=== PATIENT | female | born 1980 | race Asian ===

== ENCOUNTER 2017-04-06 16:25 | Outpatient (CLI) | payer BC ==
[~2017-04-06] VITALS: Ht 154.9 cm; Wt 67.1 kg
[2017-04-06 16:50] VITALS: BP 104/56
[2017-04-06] MEDS ORDERED: CALC500T7 PO (17:11)
[2017-04-06] MEDS ORDERED: DOCO100C PO (17:11)
[2017-04-06] MEDS ORDERED: PREN1TAB86 PO (17:11)
--- NOTE | 2017-04-06 17:39 | Diagnostic Imaging Report ---
INDICATION: Left upper extremity pain and swelling. TECHNIQUE: Multiple real-time grayscale images are obtained over the left upper extremity in various projections. Duplex Doppler and color Doppler images were also obtained. FINDINGS: The left jugular, subclavian, axillary, brachiocephalic, and basilic veins demonstrate normal response to compression, augmentation, and Valsalva. There are no abnormal fluid collections or masses. IMPRESSION: No evidence of deep venous thrombosis in the left upper extremity. Dictated by: Dictated on workstation # [id number]
--- NOTE | 2017-04-09 12:07 | Physician Query-Final Dx ---
ADOLFO JAVIER 04/09/17 1207: Clinic Account Progress/Dx Physician Query: Please give diagnosis Date of Service Apr 06, 2017 at 16:25 PRAFUL LEYVA MD 04/10/17 0855: Clinic Account Progress/Dx DIAGNOSIS: Diagnosis arm pain ADOLFO JAVIER Apr 09, 2017 12:07 PRAFUL LEYVA MD Apr 10, 2017 08:55
== END 2017-04-06 19:03 | disposition home or self-care (01) ==
LOC: WSo 16:25 → LDRP 16:25 → WSo 19:03
PROVIDERS: ATTEND Obstetrics & Gynecology
DX: O99.89 Other specified diseases and conditions complicating pregnancy, childbirth and the puerperium (principal); M79.632 Pain in left forearm
CPT/HCPCS: 99213

== ENCOUNTER → 2017-04-13 | Outpatient (CLI) | payer OTHER ==
[~2017-04-13] MED LIST: CALC500T7 PO; DOCO100C PO; PREN1TAB86 PO
== END ==
LOC: CANPRECLI → MERGE 11:51 → LABNPT 11:51
PROVIDERS: ATTEND Obstetrics & Gynecology
DX: Z01.84 Encounter for antibody response examination (principal)

== ENCOUNTER → 2017-04-13 | Outpatient (CLI) | payer BC | LOC: LABNPT 11:00 | PROVIDERS: ATTEND Obstetrics & Gynecology | DX: Z34.83 Encounter for supervision of other normal pregnancy, third trimester (principal); Z3A.00 Weeks of gestation of pregnancy not specified | CPT/HCPCS: 86850 ==

== ENCOUNTER 2017-04-14 13:10 | Outpatient (CLI) | payer BC ==
[2017-04-14 14:49] VITALS: BP 101/62
== END 2017-04-14 14:52 | disposition home or self-care (01) ==
LOC: WSo 13:10
PROVIDERS: ATTEND Obstetrics & Gynecology
DX: Z41.8 Encounter for other procedures for purposes other than remedying health state (principal)
CPT/HCPCS: 96372

== ENCOUNTER 2017-06-15 08:10 | Outpatient (CLI) | payer BC ==
[~2017-06-15] VITALS: Ht 160 cm; Wt 74.4 kg
[2017-06-15 08:15] VITALS: BP 110/71
[2017-06-23] MEDS ORDERED: IBUP-1780 PO (07:06)
[2017-06-23] MEDS ORDERED: OXYC-465 PO (07:06)
[2017-06-23] MEDS ORDERED: DOCU100C37 PO (07:06)
== END 2017-06-15 08:35 | disposition home or self-care (01) ==
LOC: PREOP 08:10
PROVIDERS: ATTEND Obstetrics & Gynecology
DX: Z01.818 Encounter for other preprocedural examination (principal); O34.219 Maternal care for unspecified type scar from previous cesarean delivery; Z3A.00 Weeks of gestation of pregnancy not specified
CPT/HCPCS: 87081

== ENCOUNTER 2017-06-22 06:09 | Inpatient (IN) | payer BC ==
[~2017-06-22] VITALS: Ht 157.5 cm; Wt 73.0 kg
[~2017-06-22 06:09] MED LIST changes: +CITRIC ACID/SOB CIT (BICITRA) 30 ML UDC ONE; +FAMOTIDINE 20MG/2ML IV (PEPCID) ONE; +METOCLOPRAMIDE INJ 10 MG/2 ML (REGLAN) ONE; +ceFAZolin 2 GM/50 ML NS 50 ML ONE; +metroNIDAZOLE 500MG/100ML IVPB 100 ML ONE
[2017-06-22] MEDS ORDERED: CITRIC ACID/SOB CIT (BICITRA) 30 ML UDC PO ONE (06:15)
[2017-06-22] MEDS ORDERED: METOCLOPRAMIDE INJ 10 MG/2 ML (REGLAN) IV ONE (06:15)
[2017-06-22] MEDS ORDERED: ceFAZolin 2 GM/50 ML NS 50 ML IV ONE (06:15)
[2017-06-22] MEDS ORDERED: metroNIDAZOLE 500MG/100ML IVPB 100 ML IV ONE ×2 (06:15→07:00)
[2017-06-22] MEDS ORDERED: FAMOTIDINE 20MG/2ML IV (PEPCID) IV ONE (06:15)
[2017-06-22] MEDS: LACTATED RINGERS 1,000 ML IV PRN ×2 (06:31→07:40)
[2017-06-22 06:38] LABS: BASOPHILS % (AUTO) 0 % (0-10); EOSINOPHILS # (AUTO) 0.1 10^3/uL (0.0-0.3); EOSINOPHILS % (AUTO) 1 % (0-10); LYMPHOCYTES # (AUTO) 1.4 X 10^3 (1.0-4.0); LYMPHOCYTES % (AUTO) 22 % (12-44); MEAN CORPUSCULAR HEMOGLOBIN 30 PG (25-34); MEAN CORPUSCULAR HGB CONC 33 G/DL (32-36); MEAN CORPUSCULAR VOLUME 91 FL (80-99); MEAN PLATELET VOLUME 12.3 FL (7.4-10.4); MONOCYTES # (AUTO) 0.5 X 10^3 (0.0-1.0); MONOCYTES % (AUTO) 7 % (0-12); NEUTROPHILS # (AUTO) 4.5 X 10^3 (1.8-7.8); NEUTROPHILS % (AUTO) 70 % (42-75); PLATELET COUNT 163 10^3/uL (130-400); RED BLOOD COUNT 4.19 10^6/uL (4.35-5.85); RED CELL DISTRIBUTION WIDTH 13.6 % (10.0-14.5); WHITE BLOOD COUNT 6.4 10^3/uL (4.3-11.0)
[2017-06-22] MEDS ORDERED: ONDANSETRON 4 MG/2 ML (SDV) Z0FRAN ONE (06:48)
[2017-06-22] MEDS ORDERED: DEXAMETHASONE 10 MG/ML (DECADRON) 1 ML VIAL ONE (06:48)
[2017-06-22] MEDS ORDERED: morphine PF (DURAMORPH) 10 MG/10 ML AMP ONE (06:48)
[2017-06-22] MEDS ORDERED: OXYTOCIN/NORMAL SALINE 1,000 ML IV ONE (06:48)
[2017-06-22] MEDS ORDERED: LACTATED RINGERS 0 ML IV ONE (06:48)
[2017-06-22] MEDS ORDERED: fentaNYL INJECTION 100 MCG/2 ML AMP ONE (06:49)
[2017-06-22] MEDS ORDERED: ceFAZolin INJECTION 2,000 MG in NS (IVPB) 50 ML IV ONE (07:00)
[2017-06-22] MEDS ORDERED: OXYTOCIN/NORMAL SALINE 500 ML IV SCH (07:01)
--- NOTE | 2017-06-22 07:05 | Progress Note-Post Operative ---
Post-Operative Progess Note Surgeon (s)/Order Manager (s) Surgeon PRAFUL LEYVA MD Order Manager: Cecelia Brito Pre-Operative Diagnosis 38-4/7 weeks' gestation with previous and oligohydramnios Post-Operative Diagnosis same with delivery of a viable male infant weighing 6 lbs. 12 oz. and Apgars of 7 and 9 Procedure & Operative Findings Date of Procedure 06/22/17 Procedure Performed/Findings repeat low transverse delivery Anesthesia Type spinal Estimated Blood Loss Estimated blood loss (mL): 300 mL Specimens/Packing Specimens Removed placenta umbilical cord cord blood Packing: none PRAFUL LEYVA MD Jun 22, 2017 07:05
[2017-06-22] MEDS ORDERED: D5 LR IV SOLUTION 1,000 ML IV ONE ×2 (07:09→19:00)
--- NOTE | 2017-06-22 07:09 | History & Physical ---
History and Physical Date Seen by Provider: Jun 22, 2017 Time Seen by Provider: 07:06 this patient is a 36-year-old 1 ectopic 1 female with an EDC of July 02, 2017 putting her now at 38-4/7 weeks' gestation. Her is complicated by oligohydramnios. testing has been reassuring. GBS culture was positive. She is Rh- and had RhoGAM at around 28 weeks gestation. she denies rupture membranes or bleeding. She is having contractions about every 6-8 minutes. Allergies are none Medications are vitamins past medical history, past surgical history, obstetric history, family history, and social histories are per the antepartum record HEENT exam is normal Neck is supple no lymphadenopathy no thyromegaly Abdomen is gravid soft nontender nondistended Extremities show no clubbing or cyanosis. There is no Homans sign. Pelvic exam is deferred Monitor shows a normal heart rate pattern with contractions every 6-8 minutes lab work is as followsLaboratory Tests 06/22/17 06:25 assessment and plan term at 38-4/7 weeks' gestation complicated by polyhydramnios in a patient with previous . Plan is for admission now for repeat delivery. Patient is planning cord blood banking and brought her collection kit with her Allergies and Home Medications Allergies Coded Allergies: No Known Drug Allergies (Unverified , 04/06/17) Home Medications Calcium Carbonate 200 Mg Tab.chew, 200 MG PO Q4H PRN for HEARTBURN, (Reported) Docosahexanoic Acid 100 Mg Capsule, 100 MG PO DAILY, (Reported) Vit W-Ca,Fe,FA(<1 mg) 1 Each Tablet, 1 EACH PO DAILY, (Reported) Clinical Quality Measures DVT/VTE Risk/Contraindication: Risk Factor Score Per Nursin RFS Level Per Nursing on Admit: 1=Low/No VTE PPX PRAFUL LEYVA MD Jun 22, 2017 7:09 am
[2017-06-22] MEDS ORDERED: TETANUS,DIPTH,PERTUSS P/F (BOOSTRIX) 0.5 ML VIAL IM ONE (07:15)
[2017-06-22] MEDS ORDERED: fentaNYL INJECTION 100 MCG/2 ML AMP IVP PRN (07:15)
[2017-06-22] MEDS ORDERED: LACTATED RINGERS 1,000 ML IV ONE (08:07)
[2017-06-22] MEDS ORDERED: ONDANSETRON 4 MG/2 ML (SDV) Z0FRAN IV PRN (08:45)
[2017-06-22] MEDS ORDERED: morphine PF (DURAMORPH) 10 MG/10 ML AMP INJ ONE (08:45)
[2017-06-22] MEDS ORDERED: NALOXONE 0.4 MG/ML 1 ML (NARCAN) VIAL IV PRN (08:45)
[2017-06-22] MEDS ORDERED: fentaNYL INJECTION 100 MCG/2 ML AMP INJ ONE (08:45)
[2017-06-22 11:30] VITALS: BP 95/64
[2017-06-22] MEDS: KETOROLAC 30 MG/ML VIAL IVP SCH ×2 (14:10→20:04)
[2017-06-22] MEDS: oxyCODONE/APAP 10/325MG (PERCOCET 10) TABLET PO PRN ×4 (15:09→23:59)
--- NOTE | 2017-06-22 15:48 | OPERATIVE REPORT ---
DATE OF SERVICE: 06/22/2017 PREOPERATIVE DIAGNOSIS: Term at 38 and 4/7 weeks gestation with oligohydramnios and previous . POSTOPERATIVE DIAGNOSIS: Term at 38 and 4/7 weeks gestation with oligohydramnios and previous . OPERATIVE PROCEDURE: Repeat low transverse delivery of viable male with Apgars of 7 and 9 at 1 and 5 minutes respectively. Weight is 6 pounds 12 ounces. time of 0810. OPERATIVE DESCRIPTION: With the patient in supine position under satisfactory spinal anesthesia she was prepped and draped in the usual fashion for abdominal surgery. Navarrete catheter was placed in the urinary bladder. A repeat Pfannenstiel incision made through the skin with a scalpel at the site of the patient's previous Pfannenstiel incision by removing that scar. The abdomen was entered in the usual manner. Bladder retractor placed into position. Clean scalpel used to make a 4 cm hysterotomy incision transversely across the lower uterine segment. That was extended by blunt dissection as well. Amniotomy occurred during the process releasing fairly small amount of clear fluid. The infant was delivered via the uterine incision in the usual manner. The was bulb suctioned on delivery of the head and again on completion of delivery. The umbilical cord was doubly clamped and cut and infant passed to Nurse Pierson the pediatric nurse in attendance for delivery. Cord bloods were obtained, the placenta delivered spontaneously Dwyer. It was normal with 3 vessel cord. It was passed off for umbilical cord blood preservation per the patient's request. The uterus was exteriorized, entry wiped cleaned with a wet laparotomy sponge. Uterine incision closed with a running locked suture of 2-0 Vicryl. Hemostasis was complete. The uterus was returned to abdominal cavity and all blood, clots and debris were removed from the abdominal cavity. With sponge and needle counts were correct and hemostasis assured the anterior part of the peritoneum was closed with a running suture of 2-0 Vicryl. The rectus muscles were closed with that suture as well as the rectus fascia was closed with 2-0 Vicryl. Subcutaneous tissue was closed with 2-0 Vicryl and the skin was stapled. Sponge and needle counts were correct on the completion of the procedure. Estimated blood loss was around 300 mL. The patient tolerated the procedure well, was transferred to the recovery room in stable condition. The infant remained at the warmer under the supervision of Nurse Cruz. Job ID: [id number] DocumentID: [id number] Dictated Date: 06/22/2017 08:36:10 [employer] Date: 06/22/2017 15:47:27 Dictated By: PRAFUL LEYVA MD
[2017-06-22 16:35] VITALS: BP 96/61
[2017-06-22 20:00] VITALS: BP 92/58
[2017-06-22] MEDS: DOCUSATE SODIUM 100 MG (COLACE) CAP PO SCH (20:03)
[2017-06-23] VITALS: BP 91/60
[2017-06-23] MEDS: KETOROLAC 30 MG/ML VIAL IVP SCH (02:14)
[2017-06-23 05:00] VITALS: BP 90/58
--- NOTE | 2017-06-23 07:01 | Progress Note-Standard ---
Standard Progress Note Progress Notes/Assess & Plan Date Seen by Provider: Jun 23, 2017 Time Seen by Provider: 07:00 Progress/Assessment & Plan this patient is without complaint. She is ambulating, voiding, tolerating by mouth, has good pain control. Patient denies chest pain, denies shortness of breath, denies nausea vomiting. Vital Signs Date Time Temp Pulse Resp B/P (MAP) Pulse Ox O2 Delivery O2 Flow Rate FiO2 06/23/17 05:00 97.8 74 18 90/58 99 Room Air 06/23/17 00:00 97.9 71 16 91/60 100 Room Air 06/22/17 20:00 98.0 68 16 92/58 98 Room Air 06/22/17 16:35 97.8 69 18 96/61 99 Room Air 06/22/17 13:42 Room Air 06/22/17 11:30 96.8 59 18 95/64 100 Room Air vital signs are stable. Patient is afebrile. The abdomen is benign. There is some tympany. Bowel sounds are present. Incision is clean dry and intact. Extreme show no clubbing cyanosis. There is no Homans sign. There is some pretibial pitting edema that is normal. Assessment and plan postoperative day number 1 status post repeat doing well. Plan is for routine convalescence care today and consider for discharge home tomorrow PRAFUL LEYVA MD Jun 23, 2017 7:01 am
[2017-06-23] MEDS ORDERED: IBUP-1780 PO (07:06)
[2017-06-23] MEDS ORDERED: OXYC-465 PO (07:06)
[2017-06-23] MEDS ORDERED: DOCU100C37 PO (07:06)
--- NOTE | 2017-06-23 07:07 | Discharge Instructions ---
Discharge Instructions Discharge Medications New, Converted or Re-Newed RX: RX on Chart Patient Instructions Patient Instructions: as directed Return to The Hospital For: as directed Activity & Diet Discharge Diet: No Restrictions Activity as Tolerated: No Orders-Post D/C & Referrals Follow Up Appt: RTC 1 week for incision check. Call to make follow up appt. for patient in 4 weeks. Wound Care: Remove daniel, apply benzoin and steri strips. Activity Per routine post instructions. Please call in RX to patient pharmacy. Diet as tolerated Patient may shower or tub bathe as desired. Continue home meds PRAFUL LEYVA MD Jun 23, 2017 7:07 am
[2017-06-23] MEDS: DOCUSATE SODIUM 100 MG (COLACE) CAP PO SCH ×2 (09:14→21:02)
[2017-06-23] MEDS: IBUPROFEN 800 MG (MOTRIN) TAB PO SCH ×3 (09:14→21:02)
[2017-06-23] MEDS: oxyCODONE/APAP 10/325MG (PERCOCET 10) TABLET PO PRN ×3 (09:15→22:33)
[2017-06-23 09:18] VITALS: BP 96/55
[2017-06-23 13:46] VITALS: BP 127/83
[2017-06-23 15:40] VITALS: BP 122/65
--- NOTE | 2017-06-23 15:45 | Anesthesia-Regional Post-Op ---
Regional Patient Condition Mental Status: Alert, Oriented x3 Circulation: Same as Pre-Op Headache: Absent Sensation: Full Recovery Motor Block: Absent Post Op Complications Complications None Follow Up Care/Instructions Patient Instructions None needed. Anesthesia/Patient Condition Patient is doing well, no complaints, stable vital signs, no apparent adverse anesthesia problems. No complications reported per nursing. EDWARD MORAN CRNA Jun 23, 2017 15:45
[2017-06-23 21:00] VITALS: BP 101/62
[2017-06-24 02:58] VITALS: BP 96/63
[2017-06-24] MEDS: IBUPROFEN 800 MG (MOTRIN) TAB PO SCH ×2 (02:58→09:13)
[2017-06-24 08:45] VITALS: BP 94/62
[2017-06-24] MEDS ORDERED: TETANUS,DIPTH,PERTUSS P/F (BOOSTRIX) 0.5 ML VIAL IM ONE (08:54)
[2017-06-24] MEDS: DOCUSATE SODIUM 100 MG (COLACE) CAP PO SCH (09:13)
--- NOTE | 2017-06-24 09:39 | Discharge Instructions ---
Discharge Instructions Orders-Post D/C & Referrals Follow Up Appt: RTC Thursday June 29, 2017 for incision check. Call to make follow up appt. for patient in 4 weeks. Wound Care: Remove daniel, apply benzoin and steri strips. Activity Per routine post instructions. Please call in RX to patient pharmacy. Diet as tolerated Patient may shower or tub bathe as desired. Continue home meds PRAFUL LEYVA MD Jun 24, 2017 9:39 am
--- NOTE | 2017-06-24 09:41 | Progress Note-Standard ---
Standard Progress Note Progress Notes/Assess & Plan Date Seen by Provider: Jun 24, 2017 Time Seen by Provider: 09:40 Progress/Assessment & Plan this patient is without complaint. She is ambulating, voiding, tolerating by mouth, has good pain control. Patient denies chest pain, denies shortness of breath, denies nausea vomiting. Vital Signs Date Time Temp Pulse Resp B/P (MAP) Pulse Ox O2 Delivery O2 Flow Rate FiO2 06/23/17 05:00 97.8 74 18 90/58 99 Room Air 06/23/17 00:00 97.9 71 16 91/60 100 Room Air 06/22/17 20:00 98.0 68 16 92/58 98 Room Air 06/22/17 16:35 97.8 69 18 96/61 99 Room Air 06/22/17 13:42 Room Air 06/22/17 11:30 96.8 59 18 95/64 100 Room Air vital signs are stable. Patient is afebrile. The abdomen is benign. There is some tympany. Bowel sounds are present. Incision is clean dry and intact. Extreme show no clubbing cyanosis. There is no Homans sign. There is some pretibial pitting edema that is normal. Assessment and plan postoperative day number 1 status post repeat doing well. Plan is for routine convalescence care today and consider for discharge home tomorrow June 24, 2017 This patient is without complaint. She is ambulating, voiding, tolerating by mouth, has good pain control. Patient is requesting discharge home. Vital Signs Date Time Temp Pulse Resp B/P (MAP) Pulse Ox O2 Delivery O2 Flow Rate FiO2 06/24/17 08:45 98.0 73 20 94/62 98 06/24/17 02:58 98.1 87 16 96/63 Room Air 06/23/17 21:00 97.8 76 18 101/62 Room Air 06/23/17 15:40 98.4 76 20 122/65 99 Room Air vital signs are stable. Patient is afebrile. On this is firm below the umbilicus and nontender. incision is clean dry and intact. Extreme show clubbing cyanosis. There is no Homans sign. there is some pretibial pitting edema that is normal. assessment and plan postoperative day number 2 status post repeat doing well. Plan is for discharge home with follow-up in clinic Final Diagnosis 38+ week gestation with oligohydramnios and repeat PRAFUL LEYVA MD Jun 24, 2017 9:41 am
[2017-06-24] MEDS: oxyCODONE/APAP 10/325MG (PERCOCET 10) TABLET PO PRN (11:37)
--- NOTE | 2017-07-20 15:51 | Anesthesia-Procedure Note ---
Procedure Start/Stop Time Date of Procedure: Jun 22, 2017 Start Time: 08:38 Stop Time: 08:38 Procedures/Interventions Procedures Anesthesia End time 0838 PARKER PEREZ CRNA Jul 20, 2017 15:51
== END 2017-06-24 13:35 | disposition home or self-care (01) | DRG 766 ==
LOC: LDRP 06:09
PROVIDERS: ADMIT Obstetrics & Gynecology; ATTEND Obstetrics & Gynecology
PROC: 10D00Z1 Extraction of Products of Conception, Low, Open Approach (ICD-10-PCS; principal; 2017-06-22 07:41)
DX: O41.03X0 Oligohydramnios, third trimester, not applicable or unspecified (principal); O34.211 Maternal care for low transverse scar from previous cesarean delivery; Z3A.38 38 weeks gestation of pregnancy; Z37.0 Single live birth; Z23 Encounter for immunization
CPT/HCPCS: 36415; 85025; 86850; 86900; 86901; 90715; 94664

== ENCOUNTER → 2023-05-04 | Outpatient (CLI) | payer BC ==
[~2023-05-04] MED LIST changes: -CITRIC ACID/SOB CIT (BICITRA) 30 ML UDC ONE; +DOCU100C37 PO; -FAMOTIDINE 20MG/2ML IV (PEPCID) ONE; +IBUP-1780 PO; -METOCLOPRAMIDE INJ 10 MG/2 ML (REGLAN) ONE; +OXYC-556 PO; -ceFAZolin 2 GM/50 ML NS 50 ML ONE; -metroNIDAZOLE 500MG/100ML IVPB 100 ML ONE
--- NOTE | 2023-05-04 13:25 | Diagnostic Imaging Report ---
Indication: Bilateral digital 2-D and 3-D screening with CAD. The current study was also evaluated with a Computer Aided Detection (CAD) system. COMPARISON: 05/2016 FINDINGS: density 3 No breast mass, spiculated lesion or suspicious calcifications, architectural distortion or changes to suggest malignancy. IMPRESSION: BI-RADS Category 1 ACR BI-RADS Category 1: Negative. Result letter will be mailed to the patient. Note: At least 10% of breast cancer is not imaged by mammography. Dictated by: Dictated on workstation # [id number]
== END ==
LOC: RAD 07:31
PROVIDERS: ATTEND Obstetrics & Gynecology
DX: Z12.31 Encounter for screening mammogram for malignant neoplasm of breast (principal)
CPT/HCPCS: 77063; 77067